=== PATIENT | female | born 1970 | race Caucasian/White ===

== ENCOUNTER 2021-04-26 06:40 | Day surgery (SDC) | payer OTHER ==
[~2021-04-26] VITALS: Ht 172.7 cm; Wt 80.1 kg
[~2021-04-26 06:40] MED LIST: ADAL40KI INJ; ASCO250T13 PO; CHOL500015 PO; FOLI1TAB32 PO; HYDR1TAB53 PO; LOSA50TA14 PO; METH2.5T PO; SERT100T32 PO
[2021-04-26 07:26] VITALS: BP 123/84
[2021-04-26] MEDS ORDERED: LACTATED RINGERS 1,000 ML IV SCH (07:30)
[2021-04-26] MEDS ORDERED: CHLORHEXIDINE 15 ML UDC PO ONE (07:30)
[2021-04-26] MEDS ORDERED: CEFOTETAN PMX 2GM/50ML 50 ML IVPB ONE (07:30)
[2021-04-26 07:59] LABS: HCG UR SG 1.014 (1.003-1.030)
[2021-04-26] MEDS ORDERED: MIDAZOLAM 1 MG/ML, 2ML ONE (08:11)
[2021-04-26] MEDS ORDERED: FENTANYL PF 250 MCG/5ML ONE (08:11)
[2021-04-26] MEDS ORDERED: BUPIVACAINE/PF 0.25% ONE (08:55)
[2021-04-26] MEDS ORDERED: EPINEPHRINE 1 MG/ML, 1ML ONE (08:55)
[2021-04-26] MEDS ORDERED: MEPERIDINE/PF 25MG/0.5ML IVPush PRN (09:30)
[2021-04-26] MEDS ORDERED: PROMETHAZINE 25 MG/ML, 1ML IV PRN (09:30)
[2021-04-26] MEDS ORDERED: METOCLOPRAMIDE 5 MG/ML, 2ML IV PRN (09:30)
[2021-04-26] MEDS ORDERED: OXYcodone 5 MG/5 ML ORAL.SOL UDC PO PRN (09:30)
[2021-04-26] MEDS ORDERED: KETOROLAC 30 MG/1 ML IV PRN (09:30)
[2021-04-26] MEDS ORDERED: FENTANYL PF 100 MCG/2ML IV PRN (09:30)
[2021-04-26] MEDS ORDERED: hydrALAzine 20 MG/ML, 1ML IV PRN (09:30)
[2021-04-26] MEDS ORDERED: ALBUTEROL SULFATE 2.5 MG/3 ML NPPB PRN (09:30)
[2021-04-26] MEDS ORDERED: DIAZEPAM 5 MG/ML, 2ML IV PRN ×2 (09:30)
[2021-04-26] MEDS ORDERED: ONDANSETRON 2MG/ML, 2ML IVPush PRN (09:30)
[2021-04-26] MEDS ORDERED: HYDROmorphone 1 MG/ML, 1ML INJ IV PRN (09:30)
[2021-04-26] MEDS ORDERED: LABETALOL 5MG/ML, 20ML IV PRN (09:30)
[2021-04-26] MEDS ORDERED: OXYcodone 5 MG/5 ML ORAL.SOL UDC ONE (10:14)
[2021-04-26] MEDS ORDERED: KETOROLAC 30 MG/1 ML ONE (10:14)
== END 2021-04-26 11:25 | disposition home or self-care (01) ==
LOC: OUT 06:40
PROVIDERS: ATTEND Specialist
DX: R87.613 High grade squamous intraepithelial lesion on cytologic smear of cervix (HGSIL) (principal); D07.1 Carcinoma in situ of vulva; I10 Essential (primary) hypertension; F32.9 Major depressive disorder, single episode, unspecified; Z20.822 Contact with and (suspected) exposure to COVID-19; Z98.890 Other specified postprocedural states; Z79.2 Long term (current) use of antibiotics; Z79.899 Other long term (current) drug therapy
CPT/HCPCS: 56620; 81025; 87635; 88305; J0171; J1885; J2250; J3010; J7120